=== PATIENT | female | born 1990 | race Hispanic/Latino ===

== ENCOUNTER 2017-11-25 23:00 | Emergency (ER) | payer SELFPAY ==
[2017-11-25 23:10] VITALS: PULSE 103; RESP 16; TEMP 97.4; O2SAT 96
--- NOTE | 2017-11-25 23:28 | ED PDOC ---
HPI: Psych/Substance Abuse Time Seen by Provider: 11/25/17 23:27 Chief Complaint (Nursing): Alcohol Ingestion Chief Complaint (Provider): alcohol ingestion History Per: Patient (27 y/o female brought to ED with friend for apparent intoxication. Denies any head injury/assault.) Past Medical History Reviewed: Historical Data, Nursing Documentation, Vital Signs Vital Signs: Last Vital Signs Temp 97.4 F L 11/25/17 23:07 Pulse 103 H 11/25/17 23:07 Resp 16 11/25/17 23:07 BP Pulse Ox 96 11/25/17 23:07 - Family History Family History: States: No Known Family Hx - Allergies Allergies/Adverse Reactions: Allergies Allergy/AdvReac Type Severity Reaction Status Date / Time No Known Allergies Allergy Verified 11/25/17 23:07 Review of Systems ROS Statement: Except As Marked, All Systems Reviewed And Found Negative Physical Exam - Reviewed Nursing Documentation Reviewed: Yes Vital Signs Reviewed: Yes (blood pressure 146/74 ) - Physical Exam Appears: Positive for: Well, Non-toxic, No Acute Distress Head Exam: Positive for: ATRAUMATIC, NORMAL INSPECTION, NORMOCEPHALIC Skin: Positive for: Normal Color, Warm, DRY Eye Exam: Positive for: EOMI, Normal appearance, PERRL ENT: Positive for: Normal ENT Inspection Neck: Positive for: Normal, Painless ROM Cardiovascular/Chest: Positive for: Regular Rate, Rhythm Respiratory: Positive for: CNT, Normal Breath Sounds Gastrointestinal/Abdominal: Positive for: Normal Exam, Bowel Sounds, Soft Back: Positive for: Normal Inspection Extremity: Positive for: Normal ROM Neurologic/Psych: Positive for: Alert, Oriented - ECG O2 Sat by Pulse Oximetry: 96 - Progress ED Course And Treament: Patient awaiting ride from friend's mother. In good spirits in ED. Disposition - Clinical Impression Clinical Impression: Alcohol ingestion - Patient ED Disposition Is Patient to be Admitted: No - Disposition Disposition: Routine/Home Disposition Time: 00:00 Condition: FAIR Instructions: Alcohol Poisoning (DC) Forms: [employer] (Burmese)
[2017-11-25 23:39] VITALS: BP 146/74
== END 2017-11-26 00:01 | disposition home or self-care (01) ==
LOC: H.ER 23:00
DX: F10.10 Alcohol abuse, uncomplicated (principal)